=== PATIENT | female | born 1965 | race Caucasian/White ===

== ENCOUNTER 2021-03-23 07:20 | Emergency (ER) | payer OTHER ==
[2021-03-23] MEDS ORDERED: Ibuprofen 600 MG Tab PO ONE (07:57)
--- NOTE | 2021-03-23 08:02 | EDM.PDOC ---
ED HPI GENERAL MEDICAL PROBLEM - General Chief Complaint: Chest Pain Stated Complaint: CHEST PAIN Time Seen by Provider: 03/23/21 07:25 Source of Information: Reports: Patient, Family History Limitations: Reports: No Limitations - History of Present Illness INITIAL COMMENTS - FREE TEXT/NARRATIVE: 55-year-old female with persistent left anterior chest discomfort for the past 36 hours. It hurts to sit up, raise her left arm and rotate her upper body in certain ways. There is some vague numbness or pain radiating into the left shoulder but not into her neck or jaw. It does not hurt to breathe, she does not feel short of breath, she has no cough, rash over the painful area or cardiac history. No abdominal symptoms, no recent trauma. It was bothering her when she got up yesterday morning but as the day went on it seemed better but when she woke up this morning it was very sore again. She has not taken anything for pain. Onset: Unknown/Unsure (Woke up with symptoms yesterday morning) Location: Reports: Chest (Left anterior chest) Improves with: Reports: Movement Associated Symptoms: Reports: No Other Symptoms Left Chest Pain Score (Numeric/FACES): 4 - Related Data Allergies Allergy/AdvReac Type Severity Reaction Status Date / Time *fresh fish Allergy Airway Uncoded 03/23/21 07:33 Tightness Home Meds: Home Meds NK [No Known Home Meds] 03/23/21 [History] Past Medical History - Past Health History Medical/Surgical History: Denies Medical/Surgical History Social & Family History - Tobacco Use Tobacco Use Status *Q: Never Tobacco User - Caffeine Use Caffeine Use: Reports: Coffee - Recreational Drug Use Recreational Drug Use: No ED ROS GENERAL - Review of Systems Review Of Systems: See Below Constitutional: Denies: Fever, Chills, Malaise HEENT: Reports: No Symptoms Respiratory: Denies: Shortness of Breath, Pleuritic Chest Pain Cardiovascular: Reports: Chest Pain. Denies: Palpitations GI/Abdominal: Denies: Abdominal Pain, Nausea, Vomiting : Reports: No Symptoms Skin: Reports: No Symptoms Neurological: Reports: No Symptoms Psychiatric: Reports: No Symptoms ED EXAM, GENERAL - Physical Exam Exam: See Below Exam Limited By: No Limitations General Appearance: Alert, No Apparent Distress, Anxious Head: Atraumatic Neck: Supple, Non-Tender Respiratory/Chest: Lungs Clear, Other (There is some tenderness on the lower left lateral costochondral junction) Cardiovascular: Regular Rate, Rhythm, No Murmur. No: Extra Beats GI/Abdominal: Soft, Non-Tender Extremities: Normal Inspection. No: Pedal Edema Neurological: Alert, Oriented Psychiatric: Anxious Skin Exam: Warm, Dry Course - Vital Signs Last Recorded V/S: Last Vital Signs Temp 97.6 F 03/23/21 07:34 Pulse 59 L 03/23/21 07:34 Resp 12 03/23/21 07:34 BP 149/69 H 03/23/21 07:34 Pulse Ox 100 03/23/21 07:34 - Orders/Labs/Meds Orders: Active Orders 24 hr Category Date Time Status Chest 2V [CR] Routine Exams 03/23/21 07:56 Taken Labs: Laboratory Tests 03/23/21 Range/Units 08:07 Troponin I < 0.017 (0.000-0.056) ng/mL Meds: Medications Discontinued Medications Generic Name Dose Route Start Last Admin Trade Name Alana PRN Reason Stop Dose Admin Ibuprofen 600 mg 03/23/21 07:57 03/23/21 08:04 Ibuprofen 600 Mg Tab PO 03/23/21 07:58 600 mg ONETIME ONE Administration - Re-Assessments/Exams Free Text/Narrative Re-Assessment/Exam: 03/23/21 08:01 A 2 view chest x-ray was obtained as well as a troponin. Explained to the patient that this is extremely likely to be chest wall discomfort but they felt they needed some reassurance which is understandable. If the x-ray and troponin are negative, they will try anti-inflammatories for a few days. She was given 600 mg of ibuprofen. 03/23/21 09:21 2 view chest x-ray shows minimal hyperinflation but no acute findings, troponin is 0. 1 hour after the ibuprofen the patient was feeling much better. She will be diagnosed with information on costochondritis and continue anti- inflammatories. Departure - Departure Time of Disposition: 09:27 Disposition: Home, Self-Care 01 Clinical Impression: Costochondritis, acute - Discharge Information Instructions: Costochondritis, [id number] Referrals: PCP,None [Primary Care Provider] - Forms: ED Department Discharge Care Plan Goals: Increase activity as tolerated, consider a dose of ibuprofen 2-3 times daily and recheck in 4 to 6 days if not improving satisfactorily. Sepsis Event Note (ED) - Evaluation Sepsis Screening Result: No Definite Risk - Focused Exam Vital Signs: Vital Signs Temp Pulse Resp BP Pulse Ox 03/23/21 07:34 97.6 F 59 L 12 149/69 H 100 - My Orders Last 24 Hours: My Active Orders 03/23/21 07:56 Chest 2V [CR] Routine - Assessment/Plan Last 24 Hours: My Active Orders 03/23/21 07:56 Chest 2V [CR] Routine
--- NOTE | 2021-03-24 12:48 | CR ---
CHEST: 2 view CLINICAL HISTORY:Chest pain COMPARISON:None FINDINGS: There is some increase in AP diameter and slight flattening of the diaphragms. No infiltrate effusion or pneumothorax seen. Heart and pulmonary vascularity are normal. There is scoliosis Impression: No acute cardiac pulmonary process Mild hyperaeration Complex scoliotic curvature .
== END 2021-03-23 09:28 | disposition home or self-care (01) ==
LOC: JP.ED 07:20
DX: M94.0 Chondrocostal junction syndrome [Tietze] (principal); Z91.013 Allergy to seafood
CPT/HCPCS: 36415; 71046; 84484; 99285; A9270